=== PATIENT | male | born 1975 | race Two or more races ===

== ENCOUNTER 2017-11-06 17:58 | Emergency (ER) | payer MEDICAID ==
[2017-11-06 21:04] LABS: URINE BLOOD (Dip) POC Negative (NEGATIVE); URINE GLUCOSE (Dip) POC Negative (NEGATIVE); URINE KETONES (Dip) POC Trace (NEGATIVE); URINE LEUKOCYTE EST (Dip) POC Negative (NEGATIVE); URINE NITRITE (Dip) POC Negative (NEGATIVE); URINE TOTAL PROTEIN POC Negative (NEGATIVE)
[2017-11-06 21:04] LABS: URINE PH (Dip) POC 6.5 (5.0-8.5)
== END 2017-11-06 21:24 | disposition home or self-care (01) ==
LOC: FTE 17:58
DX: N48.89 Other specified disorders of penis (principal)
CPT/HCPCS: 81003; 99283